=== PATIENT | female | born 1960 | race Caucasian/White ===

== ENCOUNTER 2019-02-28 08:18 | Day surgery (SDC) | payer OTHER ==
[~2019-02-28 08:18] MED LIST: CYCL10 PO; HYDACE5 PO; IBUP800 PO; NAPR500 PO
== END 2019-02-28 23:01 | disposition home or self-care (01) ==
LOC: MOI US 08:18 → MOI MAM 08:30 → MOI US 23:01
DX: C50.812 Malignant neoplasm of overlapping sites of left female breast (principal); Z17.0 Estrogen receptor positive status [ER+]
CPT/HCPCS: 19083; 77065; 88305; 88342; 88360; A4648

== ENCOUNTER → 2019-03-05 | Outpatient (CLI) | payer OTHER | END | disposition home or self-care (01) | LOC: PLD 07:43 → LAB SHORT 07:43 | DX: C50.112 Malignant neoplasm of central portion of left female breast (principal) | CPT/HCPCS: 88305; 88342 ==

== ENCOUNTER 2019-03-27 05:52 | Day surgery (SDC) | payer OTHER ==
[~2019-03-27] VITALS: Ht 160 cm; Wt 66.3 kg
[~2019-03-27 05:52] MED LIST changes: +B Complex-Foli1 EACH PO; +CALCIUM PO; +ESTRADIOL PO; +HERBAL LIFE PO; +MEDR2.5 PO; +Triamcinolone A15 G3
--- NOTE | 2019-03-27 06:20 | NUR ---
INTO [facility] ADMISSION TO UNIT STARTED.
--- NOTE | 2019-03-27 09:13 | NUR ---
RECIEVED PATINET VSS TEARFUL COMFORTED BY RNS. DRESSING CDI
--- NOTE | 2019-03-27 09:46 | NUR ---
Discharge instructions reviewed with patient. Patient verbalizes understanding. Copy given to patient to take home. Patient States Post-Procedure ride home has been arranged. Discharged via wheelchair to private car for ride home.
== END 2019-03-27 23:14 | disposition home or self-care (01) ==
LOC: ORSCMMR 05:52 → ORD 07:30 → ORSCMMR 07:30
PROVIDERS: Surgery
PROC: 05HM33Z Insertion of Infusion Device into Right Internal Jugular Vein, Percutaneous Approach (ICD-10-PCS; principal; 2019-03-27 07:30)
PROC: B5131ZA Fluoroscopy of Right Jugular Veins using Low Osmolar Contrast, Guidance (ICD-10-PCS; principal; 2019-03-27 07:30)
DX: C50.112 Malignant neoplasm of central portion of left female breast (principal)
CPT/HCPCS: 77001; A9270-GY; C1788; J0690; J1642; J2250; J2405; J2704; J3010; J7120

== ENCOUNTER 2019-03-28 16:02 | Day surgery (SDC) | payer OTHER | END 2019-03-28 22:49 | disposition home or self-care (01) | LOC: ECHO 16:02 | DX: C50.112 Malignant neoplasm of central portion of left female breast (principal); N63.10 Unspecified lump in the right breast, unspecified quadrant | CPT/HCPCS: 19083; 77065; 88305; 93306; A4648 ==

== ENCOUNTER 2019-08-29 05:59 | Observation (INO) | payer OTHER ==
[~2019-08-29] VITALS: Ht 160 cm; Wt 66.4 kg
[2019-08-29] MEDS ORDERED: OMEP20ER PO (06:33)
[2019-08-29] MEDS ORDERED: GABA300 PO ×2 (06:35)
[2019-08-29] MEDS ORDERED: BENADRYL25 MG PO (06:36)
--- NOTE | 2019-08-29 07:00 | NUR ---
Ambulatory in Day Surgery History, Chart, Medications and Allergies reviewed before start of procedure.Patient confirms NPO status and agrees with scheduled surgery. Patient reports completing Chlorhexadine shower X2 prior to admission to hospital.Surgical site prepped with 2% Chlorhexidine cloth wipe. Lungs clear T/O to Auscultation.
--- NOTE | 2019-08-29 07:16 | NUR ---
PT PURSE LABELED AND PLACED UNDER BED WITH OTHER PERSONAL BELONGINGS. GLASSES REMOVED AND TAKEN TO PACU
--- NOTE | 2019-08-29 15:08 | NUR ---
1345 ARRIVAL PT ARRIVED TO ROOM, REPORTS PAIN IS ADEQUATELY CONTROLLED. BREAST BINDER IN PLACE TO CHEST. NO DRAINAGE TO DRESSING. CARLITOS IN PLACE X3 WITH SANGUINOUS DRAINAGE. ROPY APPEARING AREA TO LEFT UPPER CHEST. DR VALDIVIA ON UNIT RO SEE PT AND STATES HE WILL LOOK AT LEFT CHEST AREA. SPOKE WITH DR VALDIVIA AFTER HE SAW PT AND PT WILL RETURN TO OR FOR DEVELOPING HEMATOMA 1430 TO OR PER KIERAN
--- NOTE | 2019-08-29 15:16 | NUR ---
INTO [facility] FOR EVACUATION OF HEMATOMA ADMISSION TO UNIT STARTED. VSS
[2019-08-29 15:24] LABS: BASOPHILS ABSOLUTE AUTO 0.01 K/mm3 (0.00-0.23); BASOPHILS PERCENT AUTO 0 % (0-2); EOSINOPHILS PERCENT AUTO 0 % (0-6); Hematocrit 35.5 % (33.0-51.0); Hemoglobin 11.4 g/dL (11.5-16.0); IMMATURE GRAN ABSOLUTE AUTO 0.03 K/mm3 (0.00-0.10); IMMATURE GRAN PERCENT AUTO 0 % (0-1); LYMPHOCYTES ABSOLUTE AUTO 0.31 K/mm3 (0.84-5.20); LYMPHOCYTES PERCENT AUTO 3 % (21-46); MONOCYTES ABSOLUTE AUTO 0.34 K/mm3 (0.16-1.47); MONOCYTES PERCENT AUTO 4 % (4-13); Mean Corpuscular HGB 33.2 pg (26.0-34.0); Mean Corpuscular HGB Conc 32.1 g/dL (31.5-36.5); Mean Corpuscular Volume 104 fL (80-100); Mean Platelet Volume 9.9 fL (9.1-12.4); NEUTROPHILS ABSOLUTE AUTO 8.52 K/mm3 (1.96-9.15); NEUTROPHILS PERCENT AUTO 93 % (41-73); Platelet Count 235 K/mm3 (150-400); RDW Coefficient Variation 13.3 % (11.7-14.2); Red Blood Cell Count 3.43 M/mm3 (3.80-5.20); White Blood Cell Count 9.21 K/mm3 (4.00-11.30)
--- NOTE | 2019-08-29 17:21 | NUR ---
1710 RETURN TO ROOM FROM PACU PT REPORTS PAIN CONTROLLED. CARLITOS #1 TO RIGHT CHEST AND #2, 3 TO LEFT CHEST ALL WITH SMALL AMOUNT BLOODY DRAINAGE. ROPY APPEARING AREA TO UPPER CHEST WHICH WAS PRESENT ONLAST ARRIVAL TO ROOM FROM PACU IS NO LONGER PRESENT
--- NOTE | 2019-08-29 18:11 | NUR ---
summary pt reports adequate pain control. chest dressings without drainage. no increase in swelling to chest area. pt eating dinner denies nausea. juve intact x3 to chest wall
[2019-08-30 04:12] LABS: BASOPHILS ABSOLUTE AUTO 0.03 K/mm3 (0.00-0.23); BASOPHILS PERCENT AUTO 0 % (0-2); EOSINOPHILS ABSOLUTE AUTO 0.02 K/mm3 (0.00-0.68); EOSINOPHILS PERCENT AUTO 0 % (0-6); Hematocrit 27.6 % (33.0-51.0); IMMATURE GRAN ABSOLUTE AUTO 0.01 K/mm3 (0.00-0.10); IMMATURE GRAN PERCENT AUTO 0 % (0-1); LYMPHOCYTES ABSOLUTE AUTO 0.81 K/mm3 (0.84-5.20); LYMPHOCYTES PERCENT AUTO 12 % (21-46); MONOCYTES ABSOLUTE AUTO 0.98 K/mm3 (0.16-1.47); MONOCYTES PERCENT AUTO 14 % (4-13); Mean Corpuscular HGB 33.1 pg (26.0-34.0); Mean Corpuscular HGB Conc 32.6 g/dL (31.5-36.5); Mean Corpuscular Volume 102 fL (80-100); Mean Platelet Volume 10.1 fL (9.1-12.4); NEUTROPHILS ABSOLUTE AUTO 4.95 K/mm3 (1.96-9.15); NEUTROPHILS PERCENT AUTO 73 % (41-73); Platelet Count 203 K/mm3 (150-400); RDW Coefficient Variation 13.4 % (11.7-14.2); RDW Standard Deviation 49.9 fL (35.1-46.3); Red Blood Cell Count 2.72 M/mm3 (3.80-5.20)
--- NOTE | 2019-08-30 05:50 | NUR ---
PATIENT HAS SLEPT SOME OF THE NIGHT, SHE HAS HAD MINIMAL PAIN WITH THE PRN PAIN MEDS. SHE IS ALERT AND COOPERATIVE. PATIENT HAS 3 CARLITOS DRAINS THAT ARE CHANGING IN FLUID CONSISTENCY FROM SANGUINOUS TO SEROSANGUINOUS. ALL CARLITOS'S ARE SECURED WITH BULBS COMPRESSED. PATIENT HAS HAD HER PAIN CONTROLLED. SHE HAS HAD NO NOTICABLE SWELLING TO HER CHEST WALL AND HER BANDAGES AND BINDINGS ARE CLEAR. NO OTHER ACUTE CHANGES, CALL LIGHT IN REACH.
--- NOTE | 2019-08-30 08:25 | NUR ---
DR VALDIVIA RECENTLY HERE AND CHANGED DRESSINGS, REPORTS PLAN TO BE SENDING PT HOME TODAY. WILL GIVE DRESSING SUPPLIES. PT DEMONSTRATES HOW TO EMPTY AND RESUCTION CARLITOS DRAIN CORRECTLY. REPORTS WILL MONITOR CARLITOS AND TEMPERATURE AT HOME. DR AWARE OF TEMPERATURE, ROOM IS WARM FOR PT'S COMFORT. DR REPORTS TO GIVE CARLITOS, GIVEN AND DEMONSTRATES WELL.
[2019-08-30] MEDS ORDERED: HYDR1TAB94 PO (08:43)
--- NOTE | 2019-08-30 10:45 | NUR ---
DISCHARGE: PT EATING AND DRINKING, VOIDING, PASSING GAS. PT REPORTS UNDERSTANDING OF DISCHARGE INSTRUCTIONS. REPORTS PAIN CONTROLLED ON PO PAIN MEDICATION. PT UP IND WITH STEADY GAIT. DISCUSSED DISCHARGE WITH FAMILY AT CAR WITH PT. PT SENT WITH BELONGINGS, DRESSING SUPPLIES, PAPERWORK INCLUDING SCRIPT.
== END 2019-08-30 10:52 | disposition home or self-care (01) ==
LOC: ORSCMMR 05:59 → ORD 07:30 → SURS 12:46 → ORSCMMR 12:46 → SURS 12:46
PROVIDERS: ADMIT Surgery
PROC: 0J9600Z Drainage of Chest Subcutaneous Tissue and Fascia with Drainage Device, Open Approach (ICD-10-PCS; principal; 2019-08-29 07:30)
DX: N60.81 Other benign mammary dysplasias of right breast (principal); C50.112 Malignant neoplasm of central portion of left female breast; Z88.8 Allergy status to other drugs, medicaments and biological substances; Z17.0 Estrogen receptor positive status [ER+]
CPT/HCPCS: 36415; 85025; 86850; 86900; 86901; 88305; 88307; A9270-GY; G0378; J0690; J1100; J1885; J2250; J2370; J2405; J2704; J3010; J7120; Q0163; Q9968

== ENCOUNTER 2020-05-18 00:29 | Day surgery (SDC) | payer OTHER ==
[~2020-05-18 00:29] MED LIST changes: +BENADRYL25 MG PO; +GABA300 PO; +HYDR1TAB94 PO; +OMEP20ER PO
== END 2020-05-18 22:47 | disposition home or self-care (01) ==
LOC: WOUND 00:29
DX: T81.31XA Disruption of external operation (surgical) wound, not elsewhere classified, initial encounter (principal); S21.002A Unspecified open wound of left breast, initial encounter; L59.9 Disorder of the skin and subcutaneous tissue related to radiation, unspecified; Z79.899 Other long term (current) drug therapy
CPT/HCPCS: A9270; G0463

== ENCOUNTER 2020-05-26 00:48 | Day surgery (SDC) | payer OTHER | END 2020-05-26 23:08 | disposition home or self-care (01) | LOC: HBO 00:48 | DX: L59.8 Other specified disorders of the skin and subcutaneous tissue related to radiation (principal); L59.9 Disorder of the skin and subcutaneous tissue related to radiation, unspecified; S21.002D Unspecified open wound of left breast, subsequent encounter; Z92.3 Personal history of irradiation; Z79.899 Other long term (current) drug therapy; Z91.09 Other allergy status, other than to drugs and biological substances; X58.XXXD Exposure to other specified factors, subsequent encounter; Y84.2 Radiological procedure and radiotherapy as the cause of abnormal reaction of the patient, or of later complication, without mention of misadventure at the time of the procedure; Y82.8 Other medical devices associated with adverse incidents | CPT/HCPCS: G0277 ==

== ENCOUNTER 2020-05-27 01:39 | Day surgery (SDC) | payer OTHER | END 2020-05-27 22:37 | disposition home or self-care (01) | LOC: HBO 01:39 | DX: L59.8 Other specified disorders of the skin and subcutaneous tissue related to radiation (principal); S21.002D Unspecified open wound of left breast, subsequent encounter | CPT/HCPCS: G0277 ==

== ENCOUNTER 2020-05-28 00:35 | Day surgery (SDC) | payer OTHER | END 2020-05-28 22:44 | disposition home or self-care (01) | LOC: HBO 00:35 | DX: L59.8 Other specified disorders of the skin and subcutaneous tissue related to radiation (principal); S21.002D Unspecified open wound of left breast, subsequent encounter | CPT/HCPCS: G0277 ==

== ENCOUNTER 2020-05-31 00:19 | Day surgery (SDC) | payer OTHER | END 2020-05-31 22:37 | disposition home or self-care (01) | LOC: HBO 00:19 | DX: L59.8 Other specified disorders of the skin and subcutaneous tissue related to radiation (principal); L59.9 Disorder of the skin and subcutaneous tissue related to radiation, unspecified; S21.002D Unspecified open wound of left breast, subsequent encounter; X58.XXXD Exposure to other specified factors, subsequent encounter | CPT/HCPCS: G0277 ==

== ENCOUNTER 2020-06-01 00:23 | Day surgery (SDC) | payer OTHER | END 2020-06-01 22:49 | disposition home or self-care (01) | LOC: HBO 00:23 | DX: L59.8 Other specified disorders of the skin and subcutaneous tissue related to radiation (principal); S21.002D Unspecified open wound of left breast, subsequent encounter | CPT/HCPCS: G0277 ==

== ENCOUNTER 2020-06-02 00:16 | Day surgery (SDC) | payer OTHER | END 2020-06-02 22:35 | disposition home or self-care (01) | LOC: HBO 00:16 | DX: L59.8 Other specified disorders of the skin and subcutaneous tissue related to radiation (principal); S21.002D Unspecified open wound of left breast, subsequent encounter; Y84.2 Radiological procedure and radiotherapy as the cause of abnormal reaction of the patient, or of later complication, without mention of misadventure at the time of the procedure | CPT/HCPCS: G0277 ==

== ENCOUNTER 2020-06-03 00:26 | Day surgery (SDC) | payer OTHER | END 2020-06-03 23:30 | disposition home or self-care (01) | LOC: HBO 00:26 | DX: L59.8 Other specified disorders of the skin and subcutaneous tissue related to radiation (principal); S21.002D Unspecified open wound of left breast, subsequent encounter; Y84.2 Radiological procedure and radiotherapy as the cause of abnormal reaction of the patient, or of later complication, without mention of misadventure at the time of the procedure | CPT/HCPCS: G0277 ==

== ENCOUNTER 2020-06-04 00:36 | Day surgery (SDC) | payer OTHER | END 2020-06-04 22:45 | disposition home or self-care (01) | LOC: HBO 00:36 | DX: L59.8 Other specified disorders of the skin and subcutaneous tissue related to radiation (principal); S21.002D Unspecified open wound of left breast, subsequent encounter | CPT/HCPCS: G0277 ==

== ENCOUNTER 2020-06-07 00:41 | Day surgery (SDC) | payer OTHER | END 2020-06-07 23:45 | LOC: HBO 00:41 | DX: L59.8 Other specified disorders of the skin and subcutaneous tissue related to radiation (principal); S21.002D Unspecified open wound of left breast, subsequent encounter; X58.XXXD Exposure to other specified factors, subsequent encounter | CPT/HCPCS: G0277 ==

== ENCOUNTER 2020-06-08 00:14 | Day surgery (SDC) | payer OTHER | END 2020-06-08 23:45 | LOC: HBO 00:14 | DX: L59.8 Other specified disorders of the skin and subcutaneous tissue related to radiation (principal); S21.002D Unspecified open wound of left breast, subsequent encounter | CPT/HCPCS: G0277 ==

== ENCOUNTER 2020-06-09 00:16 | Day surgery (SDC) | payer OTHER | END 2020-06-09 23:45 | disposition home or self-care (01) | LOC: HBO 00:16 | DX: L59.8 Other specified disorders of the skin and subcutaneous tissue related to radiation (principal); L59.9 Disorder of the skin and subcutaneous tissue related to radiation, unspecified; S21.002D Unspecified open wound of left breast, subsequent encounter | CPT/HCPCS: G0277 ==

== ENCOUNTER 2020-06-10 00:19 | Day surgery (SDC) | payer OTHER | END 2020-06-10 23:45 | disposition home or self-care (01) | LOC: HBO 00:19 | DX: L59.8 Other specified disorders of the skin and subcutaneous tissue related to radiation (principal); Y84.2 Radiological procedure and radiotherapy as the cause of abnormal reaction of the patient, or of later complication, without mention of misadventure at the time of the procedure; S21.002D Unspecified open wound of left breast, subsequent encounter; Y83.8 Other surgical procedures as the cause of abnormal reaction of the patient, or of later complication, without mention of misadventure at the time of the procedure; Z90.12 Acquired absence of left breast and nipple | CPT/HCPCS: G0277 ==

== ENCOUNTER 2020-06-11 02:13 | Day surgery (SDC) | payer OTHER | END 2020-06-11 23:45 | disposition home or self-care (01) | LOC: HBO 02:13 | DX: L59.8 Other specified disorders of the skin and subcutaneous tissue related to radiation (principal); S21.002D Unspecified open wound of left breast, subsequent encounter; Y84.2 Radiological procedure and radiotherapy as the cause of abnormal reaction of the patient, or of later complication, without mention of misadventure at the time of the procedure; Z90.12 Acquired absence of left breast and nipple | CPT/HCPCS: G0277 ==

== ENCOUNTER 2020-06-14 00:37 | Day surgery (SDC) | payer OTHER | END 2020-06-14 23:15 | disposition home or self-care (01) | LOC: HBO 00:37 | DX: L59.8 Other specified disorders of the skin and subcutaneous tissue related to radiation (principal); S21.002D Unspecified open wound of left breast, subsequent encounter; Y84.2 Radiological procedure and radiotherapy as the cause of abnormal reaction of the patient, or of later complication, without mention of misadventure at the time of the procedure | CPT/HCPCS: G0277 ==

== ENCOUNTER 2020-06-15 01:03 | Day surgery (SDC) | payer OTHER | END 2020-06-15 22:53 | disposition home or self-care (01) | LOC: HBO 01:03 | DX: L59.8 Other specified disorders of the skin and subcutaneous tissue related to radiation (principal); S21.002D Unspecified open wound of left breast, subsequent encounter; Y84.2 Radiological procedure and radiotherapy as the cause of abnormal reaction of the patient, or of later complication, without mention of misadventure at the time of the procedure; Z90.12 Acquired absence of left breast and nipple | CPT/HCPCS: G0277 ==

== ENCOUNTER 2020-06-16 00:16 | Day surgery (SDC) | payer OTHER | END 2020-06-16 23:05 | disposition home or self-care (01) | LOC: HBO 00:16 | DX: L59.8 Other specified disorders of the skin and subcutaneous tissue related to radiation (principal); S21.002D Unspecified open wound of left breast, subsequent encounter | CPT/HCPCS: G0277 ==

== ENCOUNTER 2020-06-17 00:29 | Day surgery (SDC) | payer OTHER | END 2020-06-17 22:47 | disposition home or self-care (01) | LOC: WOUND 00:29 | DX: L59.8 Other specified disorders of the skin and subcutaneous tissue related to radiation (principal); S21.002A Unspecified open wound of left breast, initial encounter; Z90.13 Acquired absence of bilateral breasts and nipples; Z85.3 Personal history of malignant neoplasm of breast; Z92.21 Personal history of antineoplastic chemotherapy; Z92.3 Personal history of irradiation; Y84.2 Radiological procedure and radiotherapy as the cause of abnormal reaction of the patient, or of later complication, without mention of misadventure at the time of the procedure | CPT/HCPCS: A9270; G0463 ==

== ENCOUNTER 2020-06-17 00:35 | Day surgery (SDC) | payer OTHER | END 2020-06-17 22:48 | disposition home or self-care (01) | LOC: HBO 00:35 | DX: L59.8 Other specified disorders of the skin and subcutaneous tissue related to radiation (principal); S21.002D Unspecified open wound of left breast, subsequent encounter | CPT/HCPCS: G0277 ==

== ENCOUNTER 2020-06-18 02:23 | Day surgery (SDC) | payer OTHER | END 2020-06-18 22:42 | disposition home or self-care (01) | LOC: HBO 02:23 | DX: L59.8 Other specified disorders of the skin and subcutaneous tissue related to radiation (principal); S21.002D Unspecified open wound of left breast, subsequent encounter | CPT/HCPCS: G0277 ==

== ENCOUNTER 2020-06-21 00:31 | Day surgery (SDC) | payer OTHER | END 2020-06-21 23:56 | disposition home or self-care (01) | LOC: HBO 00:31 | DX: L59.8 Other specified disorders of the skin and subcutaneous tissue related to radiation (principal); L59.9 Disorder of the skin and subcutaneous tissue related to radiation, unspecified; S21.002D Unspecified open wound of left breast, subsequent encounter | CPT/HCPCS: G0277 ==

== ENCOUNTER 2020-06-22 01:10 | Day surgery (SDC) | payer OTHER | END 2020-06-22 23:45 | disposition home or self-care (01) | LOC: HBO 01:10 | DX: L59.8 Other specified disorders of the skin and subcutaneous tissue related to radiation (principal); L59.9 Disorder of the skin and subcutaneous tissue related to radiation, unspecified; S21.002D Unspecified open wound of left breast, subsequent encounter; X58.XXXD Exposure to other specified factors, subsequent encounter; Y84.2 Radiological procedure and radiotherapy as the cause of abnormal reaction of the patient, or of later complication, without mention of misadventure at the time of the procedure | CPT/HCPCS: G0277 ==

== ENCOUNTER 2020-06-23 01:41 | Day surgery (SDC) | payer OTHER | END 2020-06-23 23:00 | disposition home or self-care (01) | LOC: HBO 01:41 | DX: L59.8 Other specified disorders of the skin and subcutaneous tissue related to radiation (principal); S21.002D Unspecified open wound of left breast, subsequent encounter | CPT/HCPCS: G0277 ==

== ENCOUNTER 2020-06-24 00:29 | Day surgery (SDC) | payer OTHER | END 2020-06-24 23:49 | disposition home or self-care (01) | LOC: HBO 00:29 | DX: L59.8 Other specified disorders of the skin and subcutaneous tissue related to radiation (principal); L59.9 Disorder of the skin and subcutaneous tissue related to radiation, unspecified; S21.002D Unspecified open wound of left breast, subsequent encounter | CPT/HCPCS: G0277 ==

== ENCOUNTER 2020-06-25 00:47 | Day surgery (SDC) | payer OTHER | END 2020-06-25 23:50 | disposition home or self-care (01) | LOC: HBO 00:47 | DX: L59.8 Other specified disorders of the skin and subcutaneous tissue related to radiation (principal); S21.002D Unspecified open wound of left breast, subsequent encounter; X58.XXXD Exposure to other specified factors, subsequent encounter | CPT/HCPCS: G0277 ==

== ENCOUNTER 2020-06-28 00:46 | Day surgery (SDC) | payer OTHER | END 2020-06-28 22:54 | disposition home or self-care (01) | LOC: HBO 00:46 | DX: L59.8 Other specified disorders of the skin and subcutaneous tissue related to radiation (principal); L59.9 Disorder of the skin and subcutaneous tissue related to radiation, unspecified; S21.002D Unspecified open wound of left breast, subsequent encounter; X58.XXXD Exposure to other specified factors, subsequent encounter | CPT/HCPCS: G0277 ==

== ENCOUNTER 2020-06-29 00:40 | Day surgery (SDC) | payer OTHER | END 2020-06-29 23:07 | disposition home or self-care (01) | LOC: HBO 00:40 | DX: L59.8 Other specified disorders of the skin and subcutaneous tissue related to radiation (principal); L59.9 Disorder of the skin and subcutaneous tissue related to radiation, unspecified; S21.002D Unspecified open wound of left breast, subsequent encounter; Y84.2 Radiological procedure and radiotherapy as the cause of abnormal reaction of the patient, or of later complication, without mention of misadventure at the time of the procedure | CPT/HCPCS: G0277 ==

== ENCOUNTER 2020-06-30 00:28 | Day surgery (SDC) | payer OTHER | END 2020-06-30 22:47 | disposition home or self-care (01) | LOC: HBO 00:28 → WOUND 11:57 → HBO 12:00 | DX: L59.8 Other specified disorders of the skin and subcutaneous tissue related to radiation (principal); S21.002D Unspecified open wound of left breast, subsequent encounter; X58.XXXD Exposure to other specified factors, subsequent encounter | CPT/HCPCS: G0277 ==

== ENCOUNTER 2020-07-01 00:13 | Day surgery (SDC) | payer OTHER | END 2020-07-01 23:43 | disposition home or self-care (01) | LOC: HBO 00:13 | DX: L59.8 Other specified disorders of the skin and subcutaneous tissue related to radiation (principal); S21.002D Unspecified open wound of left breast, subsequent encounter | CPT/HCPCS: G0277 ==

== ENCOUNTER 2020-07-02 01:49 | Day surgery (SDC) | payer OTHER | END 2020-07-02 22:42 | disposition home or self-care (01) | LOC: HBO 01:49 | DX: L59.8 Other specified disorders of the skin and subcutaneous tissue related to radiation (principal); S21.002D Unspecified open wound of left breast, subsequent encounter; X58.XXXD Exposure to other specified factors, subsequent encounter | CPT/HCPCS: G0277 ==

== ENCOUNTER 2020-07-05 00:52 | Day surgery (SDC) | payer OTHER | END 2020-07-05 22:51 | disposition home or self-care (01) | LOC: HBO 00:52 | DX: L59.8 Other specified disorders of the skin and subcutaneous tissue related to radiation (principal); S21.002D Unspecified open wound of left breast, subsequent encounter; X58.XXXD Exposure to other specified factors, subsequent encounter | CPT/HCPCS: G0277 ==

== ENCOUNTER 2020-07-06 00:52 | Day surgery (SDC) | payer OTHER | END 2020-07-06 22:54 | disposition home or self-care (01) | LOC: HBO 00:52 | DX: L59.8 Other specified disorders of the skin and subcutaneous tissue related to radiation (principal); S21.002D Unspecified open wound of left breast, subsequent encounter | CPT/HCPCS: G0277 ==

== ENCOUNTER 2020-07-07 00:08 | Day surgery (SDC) | payer OTHER | END 2020-07-07 22:39 | disposition home or self-care (01) | LOC: HBO 00:08 | DX: L59.8 Other specified disorders of the skin and subcutaneous tissue related to radiation (principal); S21.002D Unspecified open wound of left breast, subsequent encounter | CPT/HCPCS: G0277 ==

== ENCOUNTER 2020-07-08 00:13 | Day surgery (SDC) | payer OTHER | END 2020-07-08 23:01 | disposition home or self-care (01) | LOC: HBO 00:13 | DX: L59.8 Other specified disorders of the skin and subcutaneous tissue related to radiation (principal); L59.9 Disorder of the skin and subcutaneous tissue related to radiation, unspecified; S21.002D Unspecified open wound of left breast, subsequent encounter; X58.XXXD Exposure to other specified factors, subsequent encounter; Y84.2 Radiological procedure and radiotherapy as the cause of abnormal reaction of the patient, or of later complication, without mention of misadventure at the time of the procedure | CPT/HCPCS: G0277 ==

== ENCOUNTER 2020-07-09 01:05 | Day surgery (SDC) | payer OTHER | END 2020-07-09 22:45 | disposition home or self-care (01) | LOC: HBO 01:05 | DX: L59.8 Other specified disorders of the skin and subcutaneous tissue related to radiation (principal); S21.002D Unspecified open wound of left breast, subsequent encounter; Y84.2 Radiological procedure and radiotherapy as the cause of abnormal reaction of the patient, or of later complication, without mention of misadventure at the time of the procedure; X58.XXXD Exposure to other specified factors, subsequent encounter | CPT/HCPCS: G0277 ==

== ENCOUNTER 2020-07-12 01:21 | Day surgery (SDC) | payer OTHER | END 2020-07-12 23:06 | disposition home or self-care (01) | LOC: HBO 01:21 | DX: L59.8 Other specified disorders of the skin and subcutaneous tissue related to radiation (principal); S21.002A Unspecified open wound of left breast, initial encounter | CPT/HCPCS: G0277 ==

== ENCOUNTER 2020-07-13 00:17 | Day surgery (SDC) | payer OTHER | END 2020-07-13 22:50 | disposition home or self-care (01) | LOC: HBO 00:17 | DX: L59.8 Other specified disorders of the skin and subcutaneous tissue related to radiation (principal); L59.9 Disorder of the skin and subcutaneous tissue related to radiation, unspecified; S21.002D Unspecified open wound of left breast, subsequent encounter; Y84.2 Radiological procedure and radiotherapy as the cause of abnormal reaction of the patient, or of later complication, without mention of misadventure at the time of the procedure | CPT/HCPCS: G0277 ==

== ENCOUNTER 2020-07-15 00:22 | Day surgery (SDC) | payer OTHER | END 2020-07-15 22:55 | disposition home or self-care (01) | LOC: HBO 00:22 | DX: L59.8 Other specified disorders of the skin and subcutaneous tissue related to radiation (principal); L59.9 Disorder of the skin and subcutaneous tissue related to radiation, unspecified; S21.002D Unspecified open wound of left breast, subsequent encounter; Y84.2 Radiological procedure and radiotherapy as the cause of abnormal reaction of the patient, or of later complication, without mention of misadventure at the time of the procedure | CPT/HCPCS: G0277; G0463 ==

== ENCOUNTER 2020-07-16 00:52 | Day surgery (SDC) | payer OTHER | END 2020-07-16 23:05 | disposition home or self-care (01) | LOC: HBO 00:52 | DX: L59.8 Other specified disorders of the skin and subcutaneous tissue related to radiation (principal); S21.002D Unspecified open wound of left breast, subsequent encounter; X58.XXXD Exposure to other specified factors, subsequent encounter | CPT/HCPCS: G0277 ==

== ENCOUNTER 2020-07-19 00:09 | Day surgery (SDC) | payer OTHER | END 2020-07-19 23:01 | disposition home or self-care (01) | LOC: HBO 00:09 | DX: L59.8 Other specified disorders of the skin and subcutaneous tissue related to radiation (principal); S21.002D Unspecified open wound of left breast, subsequent encounter; Y84.2 Radiological procedure and radiotherapy as the cause of abnormal reaction of the patient, or of later complication, without mention of misadventure at the time of the procedure | CPT/HCPCS: G0277 ==

== ENCOUNTER 2020-07-20 00:31 | Day surgery (SDC) | payer OTHER | END 2020-07-20 22:42 | disposition home or self-care (01) | LOC: HBO 00:31 | DX: L59.8 Other specified disorders of the skin and subcutaneous tissue related to radiation (principal); L59.9 Disorder of the skin and subcutaneous tissue related to radiation, unspecified; S21.002D Unspecified open wound of left breast, subsequent encounter; Y84.2 Radiological procedure and radiotherapy as the cause of abnormal reaction of the patient, or of later complication, without mention of misadventure at the time of the procedure | CPT/HCPCS: G0277 ==

== ENCOUNTER 2020-07-21 00:42 | Day surgery (SDC) | payer OTHER | END 2020-07-21 22:41 | disposition home or self-care (01) | LOC: HBO 00:42 | DX: L59.8 Other specified disorders of the skin and subcutaneous tissue related to radiation (principal); S21.002D Unspecified open wound of left breast, subsequent encounter; Y84.2 Radiological procedure and radiotherapy as the cause of abnormal reaction of the patient, or of later complication, without mention of misadventure at the time of the procedure; Z90.12 Acquired absence of left breast and nipple | CPT/HCPCS: G0277 ==

== ENCOUNTER 2020-07-27 00:34 | Day surgery (SDC) | payer OTHER | END 2020-07-27 23:14 | disposition home or self-care (01) | LOC: HBO 00:34 | DX: L59.8 Other specified disorders of the skin and subcutaneous tissue related to radiation (principal); S21.002D Unspecified open wound of left breast, subsequent encounter; Y84.2 Radiological procedure and radiotherapy as the cause of abnormal reaction of the patient, or of later complication, without mention of misadventure at the time of the procedure | CPT/HCPCS: G0277 ==

== ENCOUNTER 2020-07-28 00:27 | Day surgery (SDC) | payer OTHER | END 2020-07-28 22:37 | disposition home or self-care (01) | LOC: HBO 00:27 | DX: L59.8 Other specified disorders of the skin and subcutaneous tissue related to radiation (principal); S21.002D Unspecified open wound of left breast, subsequent encounter; X58.XXXD Exposure to other specified factors, subsequent encounter | CPT/HCPCS: G0277 ==

== ENCOUNTER 2020-07-29 00:26 | Day surgery (SDC) | payer OTHER | END 2020-07-29 23:33 | disposition home or self-care (01) | LOC: HBO 00:26 | DX: L59.8 Other specified disorders of the skin and subcutaneous tissue related to radiation (principal); S21.002D Unspecified open wound of left breast, subsequent encounter; X58.XXXD Exposure to other specified factors, subsequent encounter; Z90.12 Acquired absence of left breast and nipple | CPT/HCPCS: G0277 ==

== ENCOUNTER 2020-08-02 02:18 | Day surgery (SDC) | payer OTHER | END 2020-08-02 23:33 | disposition home or self-care (01) | LOC: HBO 02:18 | DX: L59.8 Other specified disorders of the skin and subcutaneous tissue related to radiation (principal); L59.9 Disorder of the skin and subcutaneous tissue related to radiation, unspecified; S21.002D Unspecified open wound of left breast, subsequent encounter; X58.XXXD Exposure to other specified factors, subsequent encounter | CPT/HCPCS: G0277 ==

== ENCOUNTER 2020-08-04 01:19 | Day surgery (SDC) | payer OTHER | END 2020-08-04 22:59 | disposition home or self-care (01) | LOC: HBO 01:19 | DX: L59.8 Other specified disorders of the skin and subcutaneous tissue related to radiation (principal); L59.9 Disorder of the skin and subcutaneous tissue related to radiation, unspecified; S21.002D Unspecified open wound of left breast, subsequent encounter; X58.XXXD Exposure to other specified factors, subsequent encounter | CPT/HCPCS: G0277 ==

== ENCOUNTER 2020-08-05 00:17 | Day surgery (SDC) | payer OTHER | END 2020-08-05 22:49 | disposition home or self-care (01) | LOC: HBO 00:17 | DX: L59.8 Other specified disorders of the skin and subcutaneous tissue related to radiation (principal); S21.002D Unspecified open wound of left breast, subsequent encounter; X58.XXXD Exposure to other specified factors, subsequent encounter; Z90.12 Acquired absence of left breast and nipple | CPT/HCPCS: G0277 ==

== ENCOUNTER 2020-08-09 00:19 | Day surgery (SDC) | payer OTHER | END 2020-08-09 22:50 | disposition home or self-care (01) | LOC: HBO 00:19 | DX: L59.8 Other specified disorders of the skin and subcutaneous tissue related to radiation (principal); S21.002D Unspecified open wound of left breast, subsequent encounter; Y84.2 Radiological procedure and radiotherapy as the cause of abnormal reaction of the patient, or of later complication, without mention of misadventure at the time of the procedure; X58.XXXD Exposure to other specified factors, subsequent encounter | CPT/HCPCS: G0277 ==

== ENCOUNTER 2020-08-11 00:19 | Day surgery (SDC) | payer OTHER | END 2020-08-11 22:42 | disposition home or self-care (01) | LOC: HBO 00:19 | DX: L59.8 Other specified disorders of the skin and subcutaneous tissue related to radiation (principal); S21.002D Unspecified open wound of left breast, subsequent encounter; Z90.12 Acquired absence of left breast and nipple; Y84.2 Radiological procedure and radiotherapy as the cause of abnormal reaction of the patient, or of later complication, without mention of misadventure at the time of the procedure; X58.XXXD Exposure to other specified factors, subsequent encounter | CPT/HCPCS: G0277 ==

== ENCOUNTER 2020-08-12 00:22 | Day surgery (SDC) | payer OTHER | END 2020-08-12 22:52 | disposition home or self-care (01) | LOC: HBO 00:22 | DX: L59.8 Other specified disorders of the skin and subcutaneous tissue related to radiation (principal); S21.002D Unspecified open wound of left breast, subsequent encounter; X58.XXXD Exposure to other specified factors, subsequent encounter | CPT/HCPCS: G0277 ==

== ENCOUNTER 2020-08-17 01:08 | Day surgery (SDC) | payer OTHER | END 2020-08-17 22:44 | disposition home or self-care (01) | LOC: HBO 01:08 | DX: L59.8 Other specified disorders of the skin and subcutaneous tissue related to radiation (principal); L59.9 Disorder of the skin and subcutaneous tissue related to radiation, unspecified; S21.002D Unspecified open wound of left breast, subsequent encounter; X58.XXXD Exposure to other specified factors, subsequent encounter | CPT/HCPCS: G0277 ==

== ENCOUNTER 2020-08-18 00:05 | Day surgery (SDC) | payer OTHER | END 2020-08-18 22:45 | disposition home or self-care (01) | LOC: HBO 00:05 | DX: L59.8 Other specified disorders of the skin and subcutaneous tissue related to radiation (principal); L59.9 Disorder of the skin and subcutaneous tissue related to radiation, unspecified; S21.002D Unspecified open wound of left breast, subsequent encounter; X58.XXXD Exposure to other specified factors, subsequent encounter | CPT/HCPCS: G0277 ==

== ENCOUNTER 2020-08-19 00:13 | Day surgery (SDC) | payer OTHER | END 2020-08-19 22:41 | disposition home or self-care (01) | LOC: HBO 00:13 | DX: L59.8 Other specified disorders of the skin and subcutaneous tissue related to radiation (principal); L59.9 Disorder of the skin and subcutaneous tissue related to radiation, unspecified; S21.002D Unspecified open wound of left breast, subsequent encounter; X58.XXXD Exposure to other specified factors, subsequent encounter | CPT/HCPCS: G0277 ==

== ENCOUNTER 2020-08-20 00:51 | Day surgery (SDC) | payer OTHER | END 2020-08-20 23:07 | disposition home or self-care (01) | LOC: HBO 00:51 | DX: L59.8 Other specified disorders of the skin and subcutaneous tissue related to radiation (principal); L59.9 Disorder of the skin and subcutaneous tissue related to radiation, unspecified; S21.002A Unspecified open wound of left breast, initial encounter | CPT/HCPCS: G0277 ==

== ENCOUNTER 2020-08-23 00:26 | Day surgery (SDC) | payer OTHER | END 2020-08-23 22:39 | disposition home or self-care (01) | LOC: HBO 00:26 | DX: L59.8 Other specified disorders of the skin and subcutaneous tissue related to radiation (principal); L59.9 Disorder of the skin and subcutaneous tissue related to radiation, unspecified; S21.002A Unspecified open wound of left breast, initial encounter | CPT/HCPCS: G0277 ==

== ENCOUNTER 2020-08-24 00:07 | Day surgery (SDC) | payer OTHER | END 2020-08-24 22:39 | disposition home or self-care (01) | LOC: HBO 00:07 | DX: L59.8 Other specified disorders of the skin and subcutaneous tissue related to radiation (principal); Y84.2 Radiological procedure and radiotherapy as the cause of abnormal reaction of the patient, or of later complication, without mention of misadventure at the time of the procedure; Z90.12 Acquired absence of left breast and nipple | CPT/HCPCS: G0277 ==

== ENCOUNTER 2020-08-25 00:24 | Day surgery (SDC) | payer OTHER | END 2020-08-25 22:44 | disposition home or self-care (01) | LOC: HBO 00:24 | DX: L59.8 Other specified disorders of the skin and subcutaneous tissue related to radiation (principal); S21.002D Unspecified open wound of left breast, subsequent encounter; Y84.2 Radiological procedure and radiotherapy as the cause of abnormal reaction of the patient, or of later complication, without mention of misadventure at the time of the procedure | CPT/HCPCS: G0277 ==

== ENCOUNTER 2020-08-26 00:30 | Day surgery (SDC) | payer OTHER | END 2020-08-26 23:15 | disposition home or self-care (01) | LOC: HBO 00:30 | DX: L59.8 Other specified disorders of the skin and subcutaneous tissue related to radiation (principal); S21.002D Unspecified open wound of left breast, subsequent encounter | CPT/HCPCS: G0277 ==

== ENCOUNTER 2020-08-27 00:44 | Day surgery (SDC) | payer OTHER | END 2020-08-27 23:24 | disposition home or self-care (01) | LOC: HBO 00:44 | DX: L59.8 Other specified disorders of the skin and subcutaneous tissue related to radiation (principal); S21.002A Unspecified open wound of left breast, initial encounter; X58.XXXA Exposure to other specified factors, initial encounter | CPT/HCPCS: G0277 ==

== ENCOUNTER 2022-04-13 07:44 | Day surgery (SDC) | payer BC, MEDICARE ==
[~2022-04-13] VITALS: Ht 160 cm; Wt 65.8 kg
[~2022-04-13 07:44] MED LIST changes: +ACET500
[2022-04-13] MEDS ORDERED: LETR2.5 PO (08:10)
--- NOTE | 2022-04-13 08:20 | NUR ---
04/13/22 0820 Dorothy Roberts IN AT 0808 ARNOLDO IN AT 0810
== END 2022-04-13 09:54 | disposition home or self-care (01) ==
LOC: ORSCSDS 07:44
PROVIDERS: Ophthalmology
PROC: 08RJ3JZ Replacement of Right Lens with Synthetic Substitute, Percutaneous Approach (ICD-10-PCS; principal; 2022-04-13 09:00)
DX: H25.11 Age-related nuclear cataract, right eye (principal); F41.8 Other specified anxiety disorders; G25.0 Essential tremor; E78.1 Pure hyperglyceridemia; K21.9 Gastro-esophageal reflux disease without esophagitis; Z79.899 Other long term (current) drug therapy
CPT/HCPCS: J2001; J2250; J3010; J3301; V2632

== ENCOUNTER 2022-04-18 13:00 | Day surgery (SDC) | payer BC, MEDICARE ==
[~2022-04-18] VITALS: Ht 160 cm; Wt 66.0 kg
[~2022-04-18 13:00] MED LIST changes: +LETR2.5 PO
[2022-04-18] MEDS ORDERED: GABA300 PO (13:51)
== END 2022-04-18 15:15 | disposition home or self-care (01) ==
LOC: ORSCSDS 13:00
PROVIDERS: Ophthalmology
PROC: 08RK3JZ Replacement of Left Lens with Synthetic Substitute, Percutaneous Approach (ICD-10-PCS; principal; 2022-04-18 14:30)
DX: H25.12 Age-related nuclear cataract, left eye (principal); G25.0 Essential tremor; F41.8 Other specified anxiety disorders; E78.1 Pure hyperglyceridemia; Z79.899 Other long term (current) drug therapy
CPT/HCPCS: J2001; J2250; J3010; J3301; J7040; V2632

== ENCOUNTER 2024-05-05 06:10 | Day surgery (SDC) | payer BC, MEDICARE ==
[~2024-05-05] VITALS: Ht 160 cm; Wt 67.1 kg
[2024-05-05] MEDS ORDERED: propofoL 20 ML IV ONE (06:29)
[2024-05-05] MEDS ORDERED: METOPROLOL SUCC25 MG PO (06:29)
[2024-05-05] MEDS ORDERED: Dexamethasone Sod Phos 10 MG/ML 1ML VIAL ONE (06:29)
[2024-05-05] MEDS ORDERED: Midazolam HCl 1MG / ML 2ML Vial ONE (06:29)
[2024-05-05] MEDS ORDERED: FentaNYL Citrate 50 MCG/ML 2 ML Injection ONE (06:29)
[2024-05-05] MEDS ORDERED: Potassium Chlo20 ME1 PO (06:29)
[2024-05-05] MEDS ORDERED: Ondansetron HCl 2 MG / ML 2ML Vial ONE (06:29)
[2024-05-05] MEDS ORDERED: Ketorolac Tromethamine 30mg Vial ONE (06:29)
[2024-05-05] MEDS ORDERED: FUROSEMIDE20 MG PO (06:30)
[2024-05-05] MEDS ORDERED: NS 50 ML IV ONE (06:30)
[2024-05-05] MEDS ORDERED: Lactated Ringer's 1,000 ML IV ONE ×2 (06:30→06:48)
[2024-05-05] MEDS ORDERED: CeFAZolin Sodium 2,000 MG VIAL ONE (06:30)
[2024-05-05] MEDS ORDERED: Ropivacaine 0.5% HCL/PF 5 MG/ML 30ML Vial ONE (06:45)
[2024-05-05] MEDS ORDERED: Lidocaine HCl 2% 10 ML SDA ONE (06:45)
--- NOTE | 2024-05-05 07:11 | NUR ---
05/05/[address] IN TO DISCUSS CONSENT AND MAKE CORRECTONS. OPERATING ON THE LEFT FOOT TODAY.
[2024-05-05 08:32] VITALS: BP 125/75
== END 2024-05-05 09:15 | disposition home or self-care (01) ==
LOC: ORSCSDS 06:10
PROVIDERS: Podiatrist Foot & Ankle Surgery
PROC: 0QSR04Z Reposition Left Toe Phalanx with Internal Fixation Device, Open Approach (ICD-10-PCS; principal; 2024-05-05 07:30)
DX: M20.11 Hallux valgus (acquired), right foot (principal); F41.9 Anxiety disorder, unspecified; F32.A Depression, unspecified; G62.9 Polyneuropathy, unspecified; Z79.899 Other long term (current) drug therapy
CPT/HCPCS: C1713; C1769; J0690; J1100; J1885; J2003; J2250; J2405; J2704; J2795; J3010; J7120

== ENCOUNTER 2024-10-10 10:41 | Day surgery (SDC) | payer MEDICARE ==
[~2024-10-10] VITALS: Ht 160 cm; Wt 66.4 kg
[~2024-10-10 10:41] MED LIST changes: +FUROSEMIDE20 MG PO; +METOPROLOL SUCC25 MG PO; +Potassium Chlo20 ME1 PO
[2024-10-10] MEDS ORDERED: CeFAZolin Sodium 2,000 MG VIAL ONE (10:54)
[2024-10-10] MEDS ORDERED: Lactated Ringer's 1,000 ML IV ONE ×2 (10:54→10:59)
--- NOTE | 2024-10-10 11:30 | NUR ---
10/10/24 2780 BRITTANI LEIGH PT TO PRE OP AREA, ASSESSED AND READY FOR OR. CALL LIGHT IN REACH. PT AWAITING MD ASSESSMENT, ENGAGED IN PRE OP/POST OP TEACHING, ALL QUESTIONS ASKED AND ANSWERED.
[2024-10-10] MEDS ORDERED: propofoL 20 ML IV ONE (13:12)
[2024-10-10] MEDS ORDERED: Midazolam HCl 1MG / ML 2ML Vial ONE (13:12)
[2024-10-10] MEDS ORDERED: FentaNYL Citrate 50 MCG/ML 2 ML Injection ONE (13:12)
[2024-10-10] MEDS ORDERED: Ondansetron HCl 2 MG / ML 2ML Vial ONE (13:24)
[2024-10-10] MEDS ORDERED: Dexamethasone Sod Phos 10 MG/ML 1ML VIAL ONE (13:24)
[2024-10-10] MEDS ORDERED: Bupivacaine 0.5% HCl 5 MG/ML 30MLVIAL INJ ONE (13:24)
[2024-10-10] MEDS ORDERED: Lidocaine HCl 2% 10 ML SDA INJ ONE (13:27)
[2024-10-10] MEDS ORDERED: Glycopyrrolate 0.2 MG/ML 5ML VIAL ONE (13:33)
[2024-10-10] MEDS ORDERED: Ketorolac Tromethamine 30mg Vial ONE (15:09)
[2024-10-10] MEDS ORDERED: HYDROcodone 5-APAP 325 TAB ONE (15:41)
[2024-10-10 15:50] VITALS: BP 132/83
--- NOTE | 2024-10-10 16:27 | NUR ---
10/10/24 1627 Dre Cardona PT REPORTS MANAGEABLE LEVEL OF PAIN. PT AGREEABLE FOR D/C TO HOME.
== END 2024-10-10 16:23 | disposition home or self-care (01) ==
LOC: ORSCSDS 10:41
PROVIDERS: Podiatrist Foot & Ankle Surgery
PROC: 0SQ Lower Joints, Repair (ICD-10-PCS; principal; 2024-10-10 12:00)
DX: M21.611 Bunion of right foot (principal); E78.5 Hyperlipidemia, unspecified; I12.9 Hypertensive chronic kidney disease with stage 1 through stage 4 chronic kidney disease, or unspecified chronic kidney disease; N18.9 Chronic kidney disease, unspecified; F41.8 Other specified anxiety disorders; G62.9 Polyneuropathy, unspecified; Z79.899 Other long term (current) drug therapy
CPT/HCPCS: A6253; A9270; C1713; J0690; J1100; J1885; J2003; J2250; J2405; J2704; J3010; J7120